=== PATIENT | female | born 1980 | race Caucasian/White ===

== ENCOUNTER → 2019-11-09 13:22 | Outpatient (CLI) | payer BC, SELFPAY ==
[2014-12-30 07:10] VITALS: BMI 32.9
[2019-11-12 12:07] LABS: Age Gdln ACOG Testing 30-65 (.)
[2019-11-12 15:47] LABS: HPV APTIMA, High Risk Negative (Negative); HPV Reflexed? YES, CHARGE PATIENT
== END ==
PROVIDERS: Visit Provider Obstetrics & Gynecology
DX: Z12.4 Encounter for screening for malignant neoplasm of cervix (principal)
CPT/HCPCS: 87624; 88175; G0145

== ENCOUNTER → 2022-06-05 | Outpatient (CLI) | payer BC, SELFPAY ==
[2022-06-07 15:10] LABS: HPV APTIMA, High Risk Negative (Negative)
== END | disposition home or self-care (01) ==
LOC: LABSPEC 11:00
PROVIDERS: Visit Provider Student in an Organized Health Care Education/Training Program
DX: Z12.4 Encounter for screening for malignant neoplasm of cervix (principal)
CPT/HCPCS: 87624; 88175; G0145